=== PATIENT | male | born 1965 | race Caucasian/White ===

== ENCOUNTER 2020-04-09 09:43 | Emergency (ER) | payer OTHER ==
[~2020-04-09] VITALS: Ht 177.8 cm; Wt 68.0 kg
[2020-04-09 09:52] VITALS: BP 154/92
--- NOTE | 2020-04-09 10:00 | NUR ---
PT W/C ASSISTED TO BED 3.
[2020-04-09] MEDS ORDERED: ONDANSETRON 4 MG/2 ML VIAL IVP ONE (10:10)
[2020-04-09] MEDS ORDERED: NACL 0.9% 1,000 ML IV ONE ×2 (10:10→11:15)
--- NOTE | 2020-04-09 10:10 | NUR ---
54 Y/O MALE PRESENT WITH ALCOHOL INTOXICATION AND ELEVATED BLOOD SUGAR. PT IS AAOX4. RESP EVEN AND UNLABORED. ABD SOFT/NON DISTENDED. NON AMBULATORY AT THIS TIME. PMH: DM, HTN, HIGH CHOLESTEROL, ASTHMA
[2020-04-09 10:36] LABS: BASOPHILS % (AUTO) 1.1 % (0.0-2.0); EOSINOPHILS % (AUTO) 0.5 % (0.0-4.0); HEMATOCRIT 48.4 % (36-52); HEMOGLOBIN 16.6 g/dL (12.0-18.0); LYMPHOCYTES # (AUTO) 1.7 K/uL (2.0-11.5); LYMPHOCYTES % (AUTO) 38.7 % (20.5-51.1); MEAN CORPUSCULAR HEMOGLOBIN 31 pg (27-31); MEAN CORPUSCULAR HGB CONC 34 g/dL (33-37); MEAN CORPUSCULAR VOLUME 91.4 fL (80-94); MONOCYTES # (AUTO) 0.3 K/uL (0.8-1.0); MONOCYTES % (AUTO) 6.2 % (1.7-9.3); NEUTROPHILS # (AUTO) 2.4 K/uL (1.8-7.7); NEUTROPHILS % (AUTO) 53.5 % (42.2-75.2); PLATELET COUNT (AUTO) 258 K/uL (140-450); RED CELL DISTRIBUTION WIDTH 13.4 % (11.6-13.7); WHITE BLOOD COUNT (AUTO) 4.5 K/uL (4.8-10.8)
[2020-04-09 10:55] LABS: ALBUMIN 4.1 g/dL (3.4-5.0); ANION GAP 21.7 (8-16); CREATININE 0.9 mg/dL (0.6-1.3); POTASSIUM 3.7 mmol/L (3.5-5.1); TOTAL BILIRUBIN 0.6 mg/dL (0.0-1.0)
[2020-04-09] MEDS ORDERED: INSULIN REGULAR, HUMAN 100 UNIT/ML VIAL IV ONE (12:10)
[2020-04-09 13:01] VITALS: BP 154/92
--- NOTE | 2020-04-09 13:02 | NUR ---
Patient discharged with v/s stable. Written and verbal after care instructions given and explained. Patient verbalized understanding. Ambulatory with steady gait. All questions addressed prior to discharge. Advised to follow up with PMD.
== END 2020-04-09 13:02 | disposition home or self-care (01) ==
LOC: MED 09:43
DX: R41.82 Altered mental status, unspecified (principal); F10.129 Alcohol abuse with intoxication, unspecified; E86.0 Dehydration; Z88.0 Allergy status to penicillin
CPT/HCPCS: 36415; 80053; 82009; 83690; 85025; 96361; 96372; 96374; 99284; G0482; J1815; J2405; J7030

== ENCOUNTER 2020-12-29 20:18 | Emergency (ER) | payer OTHER ==
[~2020-12-29] VITALS: Ht 177.8 cm; Wt 53.5 kg
[2020-12-29 20:19] VITALS: BP 138/85
--- NOTE | 2020-12-29 20:19 | NUR ---
CATE FERNANDEZ TAKEN TO BED 12
[2020-12-29] MEDS ORDERED: FOLIC ACID 1 MG TAB PO ONE (20:25)
[2020-12-29] MEDS ORDERED: NACL 0.9% 1,000 ML IV ONE ×2 (20:25→21:15)
[2020-12-29] MEDS ORDERED: THIAMINE 200 MG/2 ML VIAL IV ONE (20:25)
--- NOTE | 2020-12-29 20:25 | NUR ---
Dr. Mosley with pt for MSE.
[2020-12-29 20:45] LABS: APPEARANCE,URINE CLEAR (CLEAR); BILIRUBIN,URINE NEGATIVE (NEGATIVE); BLOOD, URINE NEGATIVE (NEGATIVE); COLOR,URINE YELLOW (YELLOW); LEUKOCYTE ESTERASE ,URINE NEGATIVE (NEGATIVE); NITRITE, URINE NEGATIVE (NEGATIVE); UGLUCOSE 3+ (NEGATIVE)
--- NOTE | 2020-12-29 20:45 | NUR ---
see complete assessment.
[2020-12-29 20:47] LABS: HEMOGLOBIN 15.7 g/dL (12.0-18.0)
[2020-12-29 20:54] LABS: BASOPHILS % (AUTO) 0.4 % (0.0-2.0); EOSINOPHILS % (AUTO) 0.2 % (0.0-4.0); HEMATOCRIT 44.7 % (36-52); LYMPHOCYTES # (AUTO) 2.2 K/uL (2.0-11.5); MEAN CORPUSCULAR HEMOGLOBIN 31 pg (27-31); MEAN CORPUSCULAR HGB CONC 35 g/dL (33-37); MEAN CORPUSCULAR VOLUME 89.2 fL (80-94); MONOCYTES # (AUTO) 0.4 K/uL (0.8-1.0); MONOCYTES % (AUTO) 6.4 % (1.7-9.3); NEUTROPHILS # (AUTO) 4.3 K/uL (1.8-7.7); PLATELET COUNT (AUTO) 147 K/uL (140-450); RED BLOOD CELL COUNT(AUTO) 5.01 MIL/uL (4.20-6.10); RED CELL DISTRIBUTION WIDTH 12.8 % (11.6-13.7)
[2020-12-29 21:00] LABS: ALBUMIN 4.4 g/dL (3.4-5.0); ANION GAP 18.7 (8-16); ASPARTATE AMINOTRANSFERASE 62 U/L (15-37); CARBON DIOXIDE 24.7 mmol/L (21-32); CHLORIDE 101 mmol/L (98-107); CREATININE 0.8 mg/dL (0.6-1.3); GFR ARICAN-AMERICAN 130 mL/min (>90); GLUCOSE 316 mg/dL (74-106); POTASSIUM 3.4 mmol/L (3.5-5.1); SODIUM SERUM 141 mmol/L (136-145); UREA NITROGEN, BLOOD 7 mg/dL (7-18)
[2020-12-29 21:01] LABS: SALICYLATE < 2.8 mg/dL (2.8-20.0)
[2020-12-29 21:02] LABS: ACETAMINOPHEN < 0.5 ug/ml (10-30)
[2020-12-29 21:04] LABS: BARBITURATE, URINE NEGATIVE ng/ml (NEG <=200); BENZODIAZEPINE, URINE NEGATIVE ng/mL (NEG <=200); CANNABINOID, URINE NEGATIVE ng/mL (NEG <=50); COCAINE, URINE NEGATIVE ng/mL (NEG <=300); OPIATE, URINE NEGATIVE ng/mL (NEG <=2000); PHENCYCLIDINE SCREEN,URINE NEGATIVE ng/mL (NEG <=25)
--- NOTE | 2020-12-29 21:23 | NUR ---
PT C/O 03/02 GENERALIZED BODY PAIN AND REQUESTING PAIN MEDICATION. MARILYN BRAMBILA MADE AWARE. WILL WAIT FOR ORDERS.
[2020-12-29] MEDS ORDERED: KETOROLAC 15 MG/ML VIAL IVP ONE (21:30)
[2020-12-29] MEDS ORDERED: ONDANSETRON 4 MG/2 ML VIAL IVP ONE (21:30)
[2020-12-29] MEDS ORDERED: BLOOD GLUCOSE MONITORING 1 DEV DEV FS ONE (22:25)
[2020-12-29 22:27] VITALS: BP 113/70
--- NOTE | 2020-12-29 22:34 | NUR ---
PT REPORTS DECREASED PAIN S/P ADMINTSTRATION OF TORADOL IM.
--- NOTE | 2020-12-29 22:35 | NUR ---
ACCUCHECK-[id number]. MARILYN BRAMBILA MADE AWARE.
[2020-12-29] MEDS ORDERED: CEPH-588 PO (22:37)
[2020-12-29] MEDS ORDERED: METF500T2 PO (22:37)
--- NOTE | 2020-12-29 23:45 | NUR ---
d/c with VSS. d/c education given. opportunity to ask questions given and answered. rx of keflex and metformin given to pt.
[2020-12-30] MEDS ORDERED: MULTIVITAMIN 1 TAB PO SCH (09:00)
== END 2020-12-29 23:46 | disposition home or self-care (01) ==
LOC: MED 20:18
DX: E11.65 Type 2 diabetes mellitus with hyperglycemia (principal); F10.29 Alcohol dependence with unspecified alcohol-induced disorder; L97.509 Non-pressure chronic ulcer of other part of unspecified foot with unspecified severity; F17.210 Nicotine dependence, cigarettes, uncomplicated; J45.909 Unspecified asthma, uncomplicated; Z88.0 Allergy status to penicillin
CPT/HCPCS: 36415; 80053; 80305; 81003; 82948; 85025; 96361; 96374; 96375; 99284; G0480; G0482; J1885; J2405; J3411; J7030